=== PATIENT | male | born 1980 | race African-American/Black ===

== ENCOUNTER 2020-12-02 10:02 | Emergency (ER) | payer SELFPAY ==
[~2020-12-02] VITALS: Ht 190.5 cm; Wt 90.7 kg
[2020-12-02 10:04] VITALS: BP 151/83
[2020-12-02 10:41] LABS: Urine Bacteria NONE SEEN /hpf (None Seen); Urine Blood Negative /uL (Negative); Urine Specific Gravity 1.019 (1.001-1.035); Urine WBC 1 /hpf (0 - 3)
[2020-12-02] MEDS ORDERED: cefTRIAXone SOD 500 MG VL IM ONE (11:00)
[2020-12-02] MEDS ORDERED: AZITHROMYCIN 250 MG TAB PO ONE (11:00)
== END 2020-12-02 11:53 | disposition home or self-care (01) ==
LOC: ER 10:02
DX: Z20.2 Contact with and (suspected) exposure to infections with a predominantly sexual mode of transmission (principal)
CPT/HCPCS: 81001; 96372; 99283; J0696